=== PATIENT | female | born 1945 | race Caucasian/White ===

== ENCOUNTER 2024-04-05 18:21 | Emergency (ER) | payer OTHER, BC ==
[~2024-04-05] VITALS: Ht 162.6 cm; Wt 82.1 kg
[2024-04-05 18:25] VITALS: BP_SYST 168; PULSE 86; RESP 18; TEMP 97.4; O2SAT 96
[2024-04-05 21:55] VITALS: BP_SYST 168; PULSE 86; RESP 18; TEMP 97.4; O2SAT 96
== END 2024-04-05 21:55 | disposition home or self-care (01) ==
LOC: SED 18:21
DX: I83.892 Varicose veins of left lower extremity with other complications (principal)
CPT/HCPCS: 99281